=== PATIENT | male | born 1975 | race Caucasian/White ===

== ENCOUNTER 2018-01-01 15:53 | Emergency (ER) | payer OTHER ==
[~2018-01-01] VITALS: Ht 160 cm; Wt 56.7 kg
== END 2018-01-01 18:16 | disposition home or self-care (01) ==
LOC: ER 15:53
DX: S81.852A Open bite, left lower leg, initial encounter (principal); W54.0XXA Bitten by dog, initial encounter; Y93.89 Activity, other specified; Y92.018 Other place in single-family (private) house as the place of occurrence of the external cause; Y99.8 Other external cause status

== ENCOUNTER 2018-07-28 11:13 | Emergency (ER) | payer OTHER ==
[~2018-07-28] VITALS: Ht 165.1 cm; Wt 59.9 kg
== END 2018-07-28 16:19 | disposition home or self-care (01) ==
LOC: ER 11:13
DX: N20.1 Calculus of ureter (principal); R10.31 Right lower quadrant pain

== ENCOUNTER 2019-10-30 01:07 | Emergency (ER) | payer OTHER ==
[~2019-10-30] VITALS: Ht 160 cm; Wt 72.6 kg
[2019-10-30] MEDS ORDERED: TAMS0.4C PO (02:52)
[2019-10-30] MEDS ORDERED: KETO10TA2 PO (02:52)
[2019-10-30] MEDS ORDERED: CIPRO500 MG PO (02:52)
== END 2019-10-30 03:40 | disposition home or self-care (01) ==
LOC: ER 01:07
DX: N20.1 Calculus of ureter (principal); Z03.818 Encounter for observation for suspected exposure to other biological agents ruled out

== ENCOUNTER 2021-02-01 08:00 | Outpatient (CLI) | payer OTHER ==
[~2021-02-01 08:00] MED LIST: CIPRO500 MG PO; KETO10TA2 PO; TAMS0.4C PO
== END 2021-02-01 08:30 | disposition home or self-care (01) ==
LOC: PPH VACUNA 08:00
PROVIDERS: ATTEND Emergency Medicine Pediatric Emergency Medicine
DX: Z23 Encounter for immunization (principal)

== ENCOUNTER 2021-04-15 14:24 | Emergency (ER) | payer OTHER ==
[~2021-04-15] VITALS: Ht 165.1 cm; Wt 61.2 kg
[2021-04-15] MEDS ORDERED: DICLOFENAC SODI75 MG PO (16:34)
== END 2021-04-15 16:37 | disposition home or self-care (01) ==
LOC: ER 14:24
DX: M25.561 Pain in right knee (principal)

== ENCOUNTER 2021-05-06 09:47 | Day surgery (SDC) | payer OTHER ==
[~2021-05-06 09:47] MED LIST changes: +DICLOFENAC SODI75 MG PO
== END 2021-05-06 18:15 | disposition home or self-care (01) ==
LOC: CIR.AMB 09:47
PROVIDERS: ATTEND Orthopaedic Surgery
DX: S83.241A Other tear of medial meniscus, current injury, right knee, initial encounter (principal); M67.51 Plica syndrome, right knee; Z20.822 Contact with and (suspected) exposure to COVID-19

== ENCOUNTER 2022-12-17 07:29 | Outpatient (CLI) | payer OTHER | END 2022-12-17 07:35 | disposition home or self-care (01) | LOC: RAD 07:29 | PROVIDERS: ATTEND General Practice | DX: I70.0 Atherosclerosis of aorta (principal) ==